=== PATIENT | male | born 1990 | race Caucasian/White ===

== ENCOUNTER 2019-06-01 07:33 | Emergency (ER) | payer SELFPAY ==
[2019-06-01 07:35] VITALS: BP 143/80; PULSE 94; RESP 18; TEMP 36.6; O2SAT 98
--- NOTE | 2019-06-01 07:57 | ED.GENADUL_ITS ---
Discharge Plan Disposition Patient Disposition: HOME Condition: Stable Discharge Details Chief Complaint: EyeProblem Clinical Impression: Periorbital cellulitis of left eye Primary Care Provider: None,None ED Provider: Eleuterio Wilson Home Meds and New Rx's Prescriptions: New amoxicillin-pot clavulanate [Augmentin] 875-125 mg tablet 1 tab PO BID Qty: 14 RF: 0 Continued ibuprofen 600 MG tablet 600 mg PO QID PRN (Reason: Pain) Qty: 15 RF: 0 Discharge Instructions Instructions: Periorbital Cellulitis in Adults (ED) Additional Instructions: if you have high fevers, vision changes or feel pain in the eye return to the emergency department if not better within a week see your primary care provider or return to the em ergency department for reevaluation Medical Decision Making 29 yo male comes in with swelling around the left eye mainly inferior to the orbit. Denies fevers, eye pain or vision changes and denies any recent trauma. He has mild swelling with mild erythema that is not warm to touch inferior to the left orbit, normal conjunctiva, normal vision, ramy with eomi and no pain on extraoculars. suspect periorbital cellulitis, no findings at current time to suspect orbital cellulitis. Will start him on augmentin and advised to return if worsening Differential Diagnosis Differential Diagnosis: periorgital cellulitis, dermatitis, orbital cellulitis HPI General Mode of arrival: ambulatory . Date/Time Provider Initiated Documentation: 06/01/19 07:46 . Limitations to Documentation: no limitations . Information obtained by: patient . History of Present Illness 29 year old M presents to the emergency department with the chief complaint of left periorbital swelling, described as mild, with intensity rated at 3. and is localized to the eyes and left. Patient reports no radiation. Patient started experiencing this day(s) (1) and it has been constant. No relieving factors improve symptom(s), No exacerbating factors reported . Patient notes no other symptoms.. Related Data Home Medications Medication Instructions Recorded Confirmed ibuprofen 600 mg PO QID PRN #15 tablet 03/09/17 06/01/19 amoxicillin-pot clavulanate 1 tab PO BID #14 tab 06/01/19 [Augmentin] Previous Rx's Medication Instructions Recorded ibuprofen 600 mg PO QID PRN #15 tablet 03/09/17 amoxicillin-pot clavulanate 1 tab PO BID #14 tab 06/01/19 [Augmentin] Allergies Allergy/AdvReac Type Severity Reaction Status Date / Time No Known Allergies Allergy Unverified 06/01/19 07:37 General Stated Complaint: EyeProblem ADONIS: 5 Review of Systems All systems reviewed & are unremarkable except as noted in HPI and below Constitutional Constitutional: Denies chills, Denies fever(s) and Denies weakness Cardiovascular Cardiovascular: Denies chest pain and Denies dyspnea Respiratory Respiratory: Denies cough and Denies dyspnea Gastrointestinal Gastrointestinal: Denies abdominal pain, Denies nausea and Denies vomiting Neurologic Neurologic: Denies weakness PFSH Social History Smoking/Tobacco Use Status: Current every day Alcohol Intake: current Alcohol Intake frequency: 3 or more drinks per day Drug use: Never Substance use type: does not use Do you feel safe at home: Yes Do you feel safe in your relationship?: Yes Exam Const General: no acute distress Orientation: alert HENMT Head: normal to inspection Ears: external ears normal General nose exam: external nose normal Mouth: moist mucous membranes Eyes Alignment and Position: alignment normal Neck Neck: normal visual inspection Resp Effort & Inspection: normal respiratory effort and able to speak in complete sentences Cardio Rate: regular rate Skin General skin exam: no rashes or lesions noted Neuro General: alert and oriented x3 Extrem General: normal to inspection Psych Mental Status: mental status grossly normal Course Vital Signs Vital signs: Vital Signs Temperature 36.6 C 06/01/19 07:35 Pulse 94 H 06/01/19 07:35 Respiratory Rate 18 06/01/19 07:35 Blood Pressure 143/80 H 06/01/19 07:35 Pulse Oximetry 98 06/01/19 07:35 Temperature 36.6 C 06/01/19 07:35 Temperature Source Temporal Artery Scan 06/01/19 07:35 Pulse 94 H 06/01/19 07:35 Respiratory Rate 18 06/01/19 07:35 Respiratory Effort Non-Labored 06/01/19 07:35 Blood Pressure 143/80 H 06/01/19 07:35 Pulse Oximetry 98 06/01/19 07:35 Oxygen Delivery Method Room Air 06/01/19 07:35 Oxygen Flow Rate 0 06/01/19 07:35 Pain Level 0 06/01/19 07:35
== END 2019-06-01 08:02 | disposition home or self-care (01) ==
LOC: ER 08:05
PROVIDERS: Emergency Provider Emergency Medicine
DX: L03.211 Cellulitis of face (principal)
CPT/HCPCS: 99283

== ENCOUNTER 2020-12-02 21:06 | Emergency (ER) | payer SELFPAY ==
[2020-12-02 21:16] VITALS: BP 141/96; PULSE 88; RESP 18; TEMP 36.6; O2SAT 97
--- NOTE | 2020-12-02 21:44 | ED.GENADUL_ITS ---
Discharge Plan Disposition Patient Disposition: HOME Condition: Stable Discharge Details Clinical Impression: Hearing voices, Alcohol intoxication Primary Care Provider: None,None ED Provider: Kiran Shafer Discharge Instructions Instructions: Alcohol Intoxication (ED), Hallucinations (ED) Additional Instructions: Please follow-up with a primary care physician and [facility]. Please stop abusing alcohol. Return to the ER for any worsening or new concerning symptoms. The emergency department is a safe place and you are always welcome here. [facility] Medical Decision Making 30-year-old male presents voluntarily with law enforcement noting chronic, unchanged auditory hallucinations and alcohol consumption tonight. Voices tonight did encourage him to shoot himself. His family had a gun in his home. He did not act on these thoughts and removed himself from the situation. He notes that he is not suicidal and could never harm or kill himself. He does have some life stressors which he acknowledges. He contracts for safety is requesting discharge. Patient does not have a primary care physician nor a psychiatrist. I do think he would benefit from establishment with a primary care physician and timely outpatient follow-up. I will also refer him to [facility]. Patient is clinically sober at this time but I will discharge home with him stepmom who ensures that firearms will be removed from the home. HPI General Mode of arrival: EMS (police) . Date/Time Provider Initiated Documentation: 12/02/20 21:20 . Limitations to Documentation: no limitations . Information obtained by: patient, family and EMS . HPI Narrative: 30yo m presents with chief complaint of hearing voices. Patient notes he intermittently hears spiritual voices since he was a child. He notes that he experiences voices every couple days. He states that 98% of the time voices are positive and that sometimes they are negative. Today he notes he consumed 5-6 beers and was hearing voices telling him to shoot himself. He notes that his had a gun in the house and that he removed himself from area with gun so that he could not access it. She states that he is not suicidal and that he would never harm himself. He denies homicidality. He does have some significant life stressors including relationship difficulties with his , 1 year anniversary of his mother's and that his brother is being deployed. He notes that despite hearing voices intermittently for years she has never had mental health treatment. Voices have not changed recently. Related Data Allergies Allergy/AdvReac Type Severity Reaction Status Date / Time No Known Allergies Allergy Unverified 12/02/20 21:20 General Stated Complaint: PsychEval ADONIS: 2 Review of Systems All systems reviewed & are unremarkable except as noted in HPI and below Constitutional Constitutional: Denies fever(s) Cardiovascular Cardiovascular: Denies chest pain Musculoskeletal Musculoskeletal: Denies numbness Neurologic Neurologic: Denies numbness and Denies sensory deficit Comments: No headache Psychiatric Psychiatric: Denies depression, Reports auditory hallucinations, Denies visual hallucinations and Denies homicidal ideation [facility] Social History Smoking/Tobacco Use Status: Current every day Tobacco Type: cigarettes Smoking risk assessment performed?: Yes Alcohol Intake: current Alcohol Intake frequency: 3 or more drinks per day Drug use: Never Substance use type: does not use Do you feel safe at home: Yes Do you feel safe in your relationship?: Yes Exam Const General: cooperative and no acute distress Orientation: alert, awake, oriented x3 and not confused HENNH Head: normocephalic and atraumatic Mouth: moist mucous membranes Eyes Conjunctivae: normal conjunctivae Sclera: normal sclerae Neck Neck: trachea midline and supple Resp Auscultation: clear to auscultation bilaterally, no rales, no rhonchi and no wheezes Cardio Jugular venous pressure: no JVD Rate: regular rate and not tachycardic Rhythm: regular rhythm GI Palpation: soft, not firm, no guarding, no masses, not rigid and nontender Skin General skin exam: no rashes or lesions noted Neuro General: patient alert, patient awake, patient oriented x3, gait normal, tone normal and moves all extremities Cognition: normal cognition Speech: speech normal Gait: normal gait Extrem General: no edema Psych Appearance: grossly normal Mental Status: mental status grossly normal Speech and Movement: speech and movement normal Mood: congruent mood Affect: normal affect Attitude: cooperative Thought Content: hallucinations auditory; not visual, no homicidality and suicidality Judgment: judgment good Course Vital Signs Vital signs: Vital Signs Temperature 36.6 C 12/02/20 21:16 Pulse 88 12/02/20 21:16 Respiratory Rate 18 12/02/20 21:16 Blood Pressure 141/96 H 12/02/20 21:16 Pulse Oximetry 97 12/02/20 21:16 Temperature 36.6 C 12/02/20 21:16 Temperature Source Temporal Artery Scan 12/02/20 21:16 Pulse 88 12/02/20 21:16 Respiratory Rate 18 12/02/20 21:16 Respiratory Effort 12/02/20 21:21 Blood Pressure 141/96 H 12/02/20 21:16 Pulse Oximetry 97 12/02/20 21:16
--- NOTE | 2020-12-02 21:49 | NUR.NOTE ---
ARIAS SENT PAPER FOR FOLLOW UP AND EST WITH LUIS MIGUEL AND AVINASH A PCP FOR CHRONIC MONETORY HALLUCINATION 12/02/20
--- NOTE | 2020-12-04 13:43 | PDOC.ERCMPRO ---
- If Service Date Differs Date of service: 12/04/20 Time of Service: 13:43 Care Management Progress Note Larry is seen in the ED for auditory hallucinations and intoxication. At the request of ED provider, CM coordinates referrals to Armida Helton MD, of [facility], on-call provider, to assist him in establishing care with a PCP, and to [facility] for mental health/substance abuse treatment.
== END 2020-12-02 22:00 | disposition home or self-care (01) ==
PROVIDERS: Emergency Provider Student in an Organized Health Care Education/Training Program
DX: R44.0 Auditory hallucinations (principal); F10.120 Alcohol abuse with intoxication, uncomplicated
CPT/HCPCS: 99285; 99284